=== PATIENT | female | born 1955 | race Caucasian/White ===

== ENCOUNTER → 2016-09-25 | Outpatient (CLI) | payer BC ==
[~2016-09-25] MED LIST: ALBUAER2 INH; BND25 PO; IBUP600T44 PO
== END | disposition home or self-care (01) ==
LOC: C.PAPS 14:34
PROVIDERS: ATTEND Obstetrics & Gynecology
DX: Z01.419 Encounter for gynecological examination (general) (routine) without abnormal findings (principal)

== ENCOUNTER → 2017-08-16 | Outpatient (CLI) | payer OTHER ==
[~2017-08-16] MED LIST changes: -BND25 PO; +DIPH25CA5 PO; +VNTHFA/IN INH
--- NOTE | 2017-08-20 13:37 | MAMMOGRAPHY REPORT ---
BILATERAL DIGITAL SCREENING MAMMOGRAM TOMOSYNTHESIS WITH CAD: 08/16/2017 CLINICAL HISTORY: Routine screening. Patient has no complaints. TECHNIQUE: Breast tomosynthesis in addition to standard 2D mammography was performed. Current study was also evaluated with a Computer Aided Detection (CAD) system. COMPARISON: Comparison is made to exams dated: 08/09/2016 mammogram, 08/08/2015 mammogram, 4 mammogram, 08/04/2013 mammogram, 07/30/2012 mammogram, and 07/30/2011 mammogram - [facility]. BREAST COMPOSITION: There are scattered areas of fibroglandular density in both breasts. FINDINGS: No suspicious masses, calcifications, or areas of architectural distortion are noted in ei ther breast. There has been no significant interval change compared to prior exams. IMPRESSION: ACR BI-RADS CATEGORY 1: NEGATIVE There is no mammographic evidence of malignancy. A 1 year screening mammogram is recommended. The pa tient will receive written notification of the results. Approximately 10% of breast cancers are not detected with mammography. A negative mammographic report should not delay biopsy if a clinically suggestive mass is present. Peace Lu M.D. ah/:08/16/2017 15:27:06 Quenching Car Operator: Teodora ROSS(Lam)(M), [facility] letter sent: Normal 1/2 BI-RADS Code: ACR BI-RADS Category 1: Negative
== END | disposition home or self-care (01) ==
LOC: C.MAMM 14:58
PROVIDERS: ATTEND Obstetrics & Gynecology
DX: Z12.31 Encounter for screening mammogram for malignant neoplasm of breast (principal)

== ENCOUNTER 2017-10-14 20:25 | Emergency (ER) | payer OTHER ==
[~2017-10-14] VITALS: Ht 172.7 cm; Wt 78.6 kg
[~2017-10-14 20:25] MED LIST changes: -VNTHFA/IN INH
[2017-10-14 20:39] VITALS: BP 153/89; PULSE 69; TEMP 36.6; O2SAT 97; Ht 172.7 cm; Wt 78.6 kg
[2017-10-14] MEDS ORDERED: VNTHFA/IN INH (21:02)
[2017-10-14] MEDS ORDERED: ACETAMINOPHEN 500 MG TAB PO STA (21:15)
[2017-10-14] MEDS ORDERED: IBUPROFEN 600 MG TAB PO STA (21:15)
[2017-10-14] MEDS ORDERED: ONDANSETRON 4MG OD TAB PO STA (21:15)
--- NOTE | 2017-10-14 22:01 | DIAGNOSTIC IMAGING REPORT ---
R KNEE 3 VIEWS, L KNEE 3 VIEWS CLINICAL HISTORY: Fall. Bilateral knee pain. COMPARISON STUDY: None. FINDINGS: No fracture or dislocation. Right Prepatellar soft tissue swelling. No knee effusions. No radiopaque foreign bodies. IMPRESSION: 1. No fracture or dislocation within the right or left knee. 2. Right prepatellar soft tissue swelling. Electronically signed by: Gary Charles M.D. 10/14/2017 9:59 PM Dictated Date/Time: 10/14/2017 9:57 PM
--- NOTE | 2017-10-14 22:05 | DIAGNOSTIC IMAGING REPORT ---
LEFT WRIST 4 VIEWS HISTORY: Fall. Left wrist injury COMPARISON: None. FINDINGS: There is no fracture or dislocation. Soft tissues are unremarkable. No radiopaque foreign bodies. IMPRESSION: No fractures. Electronically signed by: Gary Charles M.D. 10/14/2017 10:03 PM Dictated Date/Time: 10/14/2017 9:59 PM
--- NOTE | 2017-10-15 18:14 | EMERGENCY ROOM VISIT NOTE ---
History First contact with patient: 21:08 Chief Complaint: FALL Stated Complaint: BOTH KNEES AND WRISTS HURT- SPRAINED FELL History of Present Illness The patient is a 62 year old female who presents to the Emergency Room with complaints of mechanical fall that occurred at home about 30 minutes ago. The patient states that she was walking out her door, when she slipped off the side of her stoop, landed onto her bilateral knees and left wrist. She did not strike her head or lose consciousness. She collected herself and was able to stand and ambulate after the injury. She has not taken anything over-the- counter for her pain. The patient does not have significant laceration or bleeding. She does not take blood thinners and considers herself usually healthy. She rates her current discomfort an 8/10. Review of Systems More than 10 systems were reviewed and otherwise negative with the exception of history of present illness. Past Medical/Surgical History No pertinent chronic medical disease Family History No pertinent family history Social History Smoking Status: Never Smoker Alcohol Use: none Drug Use: none Marital Status: Housing Status: lives with family Occupation Status: employed Current/Historical Medications Scheduled PRN Albuterol Hfa (Ventolin Hfa), 2 PUFFS INH Q6H PRN for SOB/Wheezing Physical Exam Vital Signs Date Time Temp Pulse Resp B/P (MAP) Pulse Ox O2 Delivery O2 Flow Rate FiO2 10/14/17 20:39 36.6 69 20 153/89 97 Room Air Physical Exam VITALS: Vitals are noted on the nurse's note and reviewed by myself. Vital signs stable. GENERAL: Well-developed, well-nourished, white female, who is in no acute distress and resting comfortably. Patient is cooperative with the examination. HEAD: Normocephalic atraumatic. NECK: Supple without nuchal rigidity. No lymphadenopathy. No thyromegaly. Cervical spine is nontender. HEART: Regular rate and rhythm without murmurs gallops or rubs. LUNGS: Clear to auscultation bilaterally without wheezes, rales or rhonchi. No retractions or accessory muscle use. MUSCULOSKELETAL: No gross deformity appreciated throughout the extremities. There is obvious edema and ecchymosis to the bilateral anterior knees. Negative anterior/posterior drawers. No laxity with varus and valgus maneuvers. Neurovascular status is intact distal lower extremities. The left wrist is tender across the distal radius without snuffbox tenderness. Chronograph Operator strength is 2/5. NEURO: Patient was alert and oriented to person place and time. CN II through XII grossly intact. Medical Decision & Procedures ER Provider Diagnostic Interpretation: LEFT WRIST 4 VIEWS HISTORY: Fall. Left wrist injury COMPARISON: None. FINDINGS: There is no fracture or dislocation. Soft tissues are unremarkable. No radiopaque foreign bodies. IMPRESSION: No fractures. R KNEE 3 VIEWS, L KNEE 3 VIEWS CLINICAL HISTORY: Fall. Bilateral knee pain. COMPARISON STUDY: None. FINDINGS: No fracture or dislocation. Right Prepatellar soft tissue swelling. No knee effusions. No radiopaque foreign bodies. IMPRESSION: 1. No fracture or dislocation within the right or left knee. 2. Right prepatellar soft tissue swelling. Medications Administered Medications (Trade) Dose Ordered Sig/Hayden Route Start Time Stop Time Status Last Admin Dose Admin Ibuprofen (Motrin Tab) 600 mg NOW STAT PO 10/14/17 21:15 10/14/17 21:17 DC 10/14/17 21:28 600 MG Acetaminophen (Tylenol Tab) 1,000 mg NOW STAT PO 10/14/17 21:15 10/14/17 21:17 DC 10/14/17 21:28 1,000 MG Ondansetron HCl (Zofran Odt) 4 mg NOW STAT PO 10/14/17 21:15 10/14/17 21:17 DC 10/14/17 21:28 4 MG ED Course Physical exam and history were performed. Nursing notes, EMR, and Medication List were personally reviewed. Patient appears to have fallen off her front stoop this evening and suffered injury to her bilateral knees and left wrist. X-rays were obtained and reviewed by myself and radiology showing no acute fractures or dislocations. The patient was given ibuprofen and Tylenol here in the department. I did offer crutches and a walker, however the patient feels comfortable not using these. I will place her in a wrist lacer splint and have her follow with orthopedics. I did offer her stronger pain medication, but she also declined this. Overall the patient appears well for discharge home and was given further instruction below. She voiced understanding and rated her discomfort a 2/10 at the time of departure. The chart was completed utilizing [employer] Voice Recognition Software. Grammatical errors, random word insertions, pronoun errors, and incomplete sentences are an occasional consequence of this system due to software limitations, ambient noise, and hardware issues. Any formal questions or concerns about the content, text, or information contained within the body of this dictation should be directly addressed to the provider for clarification. . Medical Decision Differential diagnosis includes, but is not limited to: Sprain, strain, fracture , dislocation, subluxation, contusion, and others Impression Primary Impression: Fall Additional Impressions: Knee injury Injury of left wrist Departure Information Dispostion Home / Self-Care Condition GOOD Referrals Juan Arellano MD Forms HOME CARE DOCUMENTATION FORM, IMPORTANT VISIT INFORMATION Patient Instructions My [facility], ED RICE Additional Instructions You were seen and evaluated today on an emergency basis only. This is not a substitute for, or an effort to provide, complete comprehensive medical care. It is not possible to recognize and treat all injuries or illnesses in a single emergency department visit. For this reason it is recommended that you followup with [facility] , Dr. Arellano's office, for ongoing care and evaluation. For baseline pain relief you may alternate ibuprofen and acetaminophen every 4 hours for pain control. Take 600 mg ibuprofen (Advil) and then 4 hours later take 1000 mg acetaminophen (Tylenol). Do not take more than 3000 mg acetaminophen in a single day. Take every precaution to prevent falling. Try using a cane to help with stability. You are welcome to return to the emergency department anytime with new, worsening, or concerning symptoms. Problem Qualifiers Primary Impression: Fall Encounter type: initial encounter Qualified Codes: W19.XXXA - Unspecified fall, initial encounter
== END 2017-10-14 22:57 | disposition home or self-care (01) ==
LOC: C.EDB 20:26 → C.EDD 22:57
DX: S89.90XA Unspecified injury of unspecified lower leg, initial encounter (principal); S69.92XA Unspecified injury of left wrist, hand and finger(s), initial encounter; W01.0XXA Fall on same level from slipping, tripping and stumbling without subsequent striking against object, initial encounter; Y92.018 Other place in single-family (private) house as the place of occurrence of the external cause

== ENCOUNTER → 2018-03-24 | Outpatient (CLI) | payer OTHER ==
[~2018-03-24] MED LIST changes: -ALBUAER2 INH; -DIPH25CA5 PO; -IBUP600T44 PO; +VNTHFA/IN INH
== END | disposition home or self-care (01) ==
LOC: C.PAPS 18:44
PROVIDERS: ATTEND Obstetrics & Gynecology
DX: Z12.4 Encounter for screening for malignant neoplasm of cervix (principal)

== ENCOUNTER 2025-02-15 11:37 | Inpatient (IN) ==
[2025-02-15 12:48] LABS: Hematocrit (blood only) 47.9 % (37.0-47.0); Hemoglobin 15.7 g/dl (12.0-16.0); Immature Granulocytes # (auto) 0.11 K/uL (0.01-0.20); Immature Granulocytes % (auto) 0.9 %; Mean Corpuscular Hemoglobin 28.8 pg (25.0-34.0); Mean Corpuscular Volume 87.9 fL (80.0-100.0); Platelet Count 297 K/uL (130-400); RDW Standard Deviation 44.4 fL (36.4-46.3); Red Blood Count 5.45 M/uL (4.20-5.40); White Blood Count 11.66 K/ul (4.8-10.8)
--- NOTE | 2025-02-15 12:54 | XRay Report ---
XR chest 1V portable CLINICAL HISTORY: Chest pain, nonspecific COMPARISON STUDY: None FINDINGS: There is mild cardiomegaly without pulmonary vascular congestion. No consolidation or pleur al effusion. No pneumothorax. IMPRESSION: No acute findings. ACT 112: Negative or not required by law. Electronically signed by: Garth Phillips M.D. 02/15/2025 12:53 PM
[2025-02-15] MEDS: METOPROLOL TARTRATE 1 MG/ML VIAL IV STA (13:04)
[2025-02-15 13:10] LABS: Alanine Aminotransferase 23.0 U/L (7-52); Albumin Globulin Ratio 1.6 (0.9-2); Alkaline Phosphatase 49.0 U/L (34-104); Anion Gap 8.0 (3-11); Bilirubin,Total 0.8 mg/dl (0.2-1.0); Blood Urea Nitrogen 18.0 mg/dl (6-23); Calcium 9.2 mg/dl (8.6-10.3); Carbon Dioxide 28.0 mmol/L (21-32); Chloride 105.0 mmol/L (98-107); Creatinine Clr Calc Pharmacy 63.7 ml/min; Globulin 2.5 gm/dl (2.5-4.0); Glucose 89.0 mg/dl (70-99(Fasting)); Lipase 13.0 U/L (11-82); Magnesium 1.9 mg/dl (1.7-2.4); Potassium 3.9 mmol/L (3.5-5.1); Sodium 141.0 mmol/L (136-145); Total Protein 6.5 gm/dl (6.0-8.3)
--- NOTE | 2025-02-15 13:22 | History & Physical Report ---
Date of Service February 15, 2025 Assessment & Plan (1) Atrial fibrillation with RVR: (2) Leukocytosis: Plan Patient is a 70-year-old female with past medical history significant for HLD, GERD, asthma, age-related osteoporosis and other problems listed below who presented to the ED with complaints including chest pain plus hypertension and was found to be in new-onset afib w/ RVR. #New-onset Afib w/ RVR CXR: mild cardiomegaly but otherwise unremarkable [id number] score = 2 S/p 5mg IV Lopressor in ED --> remains in afib w/ RVR on tele w/ HR ranging b/n 90s-120s, BP stable PO Lopressor 12.5mg Q6H for now Check TTE Trend trop; trop x 1 neg so far Close tele monitoring IV heparin for now Cards consult #Leukocytosis Likely reactive 2/2 pain Check UA, procal Follow CBC trend #Age-related osteoporosis Hold Fosamax for now; re: pt c/o reflux sx, midsternal 'burning sensation' --> PRN Maalox added on Continue vit D supplementation #GERD Continue PPI #HLD Continue statin DVT Prophylaxis: IV heparin as per above PCP: Teodora Hooker DO Disposition: Admit to med/tele Patient seen in collaboration with Dr. Monahan. Please see addendum. I spent a total of 50 minutes coordinating, documenting, and providing care for this patient excluding time spent in the performance of separately billed services or time spent by another provider/QHP. This included personally reviewing all current laboratories and imaging studies, medical reconciliation, outpatient chart review and discussion with specialists. This chart was completed in part utilizing Speech Voice Recognition Software. Grammatical errors, random word insertions, pronoun errors, and incomplete sentences are an occasional consequence of this system due to software limitations, ambient noise, and hardware issues. Any formal questions or concerns about the content, text, or information contained within the body of this dictation should be directly addressed to the provider for clarification. History of Present Illness Chief Complaint: Chest pain, elevated BP Primary Care Provider: Teoodra Hooker DO Patient is a 70-year-old female with past medical history significant for HLD, GERD, asthma, age-related osteoporosis and other problems listed below who presented to the ED with complaints of chest pain and hypertension. History obtained from the patient, discussion with the ED provider and associated chart review. Patient reports onset of crushing substernal chest pain and palpitations last evening around 8PM after riding her exercise bike. Upon resting, her HR was elevated in the 110s-120s and the substernal chest pain did not reside. She describes feeling diaphoretic, nauseated and somewhat short of breath as well when the substernal chest pain arose. Eventually these symptoms slowly improved and she was able to fall asleep; however, she mentions experiencing bouts of chest pressure throughout the night which made it difficult for her to lie flat in bed. Upon waking this morning, her symptoms slowly returned including substernal chest pain, chest pressure and nausea. She also describes feeling a "burning sensation" in her mid upper chest which she thought was related to her underlying GERD; however, she took 2 TUMS this morning without any improvement in her symptoms which subsequently prompted her to come to the ED for evaluation. Upon arrival to the ED, patient was found to be in afib with RVR on telemetry with HR in the 130s. No history of afib per patient. Does have a brother with afib. No prior blood th inner use. No history of HTN. Endorses strong family history of cardiac disease including her mother whom in her 40s due to an acute [place]. No smoking history. Rare alcohol use. No recreational drug use. Stress TTE, 07/2020: negative for inducible ischemia, LVEF 55 to 59%, grade 1 DD and mild MR. Allergies Allergy/AdvReac Type Severity Reaction Status Date / Time Penicillins Allergy Mild . Verified 05/07/24 13:28 Home Medications Medication Instructions Recorded Confirmed Type albuterol sulfate 90 mcg/actuation 2 puff inhalation Q4H PRN SOB or 12/21/20 02/15/25 History aerosol inhaler (ProAir HFA) Wheezing alendronate 10 mg PO QAM 07/18/23 02/15/25 History rosuvastatin [Crestor] 10 mg PO QAM 07/18/23 02/15/25 History omeprazole 20 mg capsule,delayed 20 mg PO QAM 02/12/24 02/15/25 History release cholecalciferol (vitamin D3) 50 50 mcg PO QAM 02/15/25 02/15/25 History mcg (2,000 unit) tablet (Vitamin D3) loratadine 10 mg tablet 10 mg PO QAM 02/15/25 02/15/25 History turmeric 400 mg capsule 400 mg PO QAM 02/15/25 02/15/25 History Past Med/Surg History Problem List Leukocytosis Atrial fibrillation with RVR PMB (postmenopausal bleeding) Encounter for gynecological examination Postmenopausal atrophic vaginitis Hypercholesterolemia Osteoporosis Asthma Postmenopausal Coccygeal contusion (Acute) Medical History Atypical glandular cells of undetermined significance (KARLY) on cervical Pap smear 2015 w/u negative Healthy adult Surgical History H/O eye surgery History of lumpectomy History of tooth extraction Family History Sister Breast cancer Mother Lung cancer Uterine cancer Aunt Breast cancer Daughter Colon tumor Other Hypertension Denies family history of Ovarian cancer Social History Smoking Status: Never smoker Do You Dip or Chew Tobacco: No; Preferred Language: Hungarian Feels Safe at Home: Yes Review of Systems Review of Systems: At least ten systems reviewed and negative, except as noted in the HPI. Physical Exam Physical Exam: General: WD/WN, NAD, sitting up in bed, pleasant, conversing appropriately, A+Ox3, at bedside HEENT: Normocephalic, atraumatic, external ear and nose normal, oropharynx normal Respiratory: Normal respiratory effort, lungs clear to auscultation bilaterally, no accessory muscle use Cardiovascular: Tachycardic rate, irregularly irregular rhythm, normal peripheral pulses, no BLE edema Abdomen/GI: Normal bowel sounds, soft, nontender to palpation in all quadrants Extremities/MSKl: No cyanosis or clubbing, extremities motor strength intact, moves all extremities Neurologic: No overt focal deficits, CN's II-XI not formally tested but appear grossly intact bilaterally Results & Data Results & Data Vital Signs (Past 12 Hours) Vital Signs Temp Pulse Pulse Resp BP BP Pulse Ox 02/15/25 13:13 111 H 02/15/25 13:04 132 H 124/86 02/15/25 12:01 136 H 18 137/111 H 96 02/15/25 11:40 36.6 C 119 H 20 152/101 H 97 O2 Del Method 02/15/25 13:13 02/15/25 13:04 02/15/25 12:01 Room Air 02/15/25 11:40 Room Air Laboratory Results Short CBC 02/15/25 Range/Units 11:57 WBC 11.66 H (4.8-10.8) K/ul Hgb 15.7 (12.0-16.0) g/dl Hct 47.9 H (37.0-47.0) % Plt Count 297 (130-400) K/uL BMP 02/15/25 11:57 Sodium 141 Potassium 3.9 Chloride 105 Carbon Dioxide 28 BUN 18 Creatinine 0.87 Glucose 89 Calcium 9.2 Liver Function 02/15/25 Range/Units 11:57 Total Bilirubin 0.8 (0.2-1.0) mg/dl AST 37 (13-39) U/L ALT 23 (7-52) U/L Alkaline Phosphatase 49 (34-104) U/L Albumin 4.0 (3.4-5.0) gm/dl Diagnostic Findings Chest X-Ray 02/15/25 12:27 XR chest 1V portable CLINICAL HISTORY: Chest pain, nonspecific COMPARISON STUDY: None FINDINGS: There is mild cardiomegaly without pulmonary vascular congestion. No consolidation or pleural effusion. No pneumothorax. IMPRESSION: No acute findings. ACT 112: Negative or not required by law. Electronically signed by: Garth Phillips M.D. 02/15/2025 12:53 PM Medications Administered Discontinued Medications Metoprolol Tartrate (Metoprolol Tartrate 1 Mg/Ml Vial) 5 mg IV NOW STA Stop: 02/15/25 12:36 Last Admin: 02/15/25 13:04 Dose: 5 mg Documented By: CC Code Status & VTE Plan Code Status FULL CODE Supervising Physician Co-Signing Physician Notes 70-year-old lady with PMH of HLD, GERD, asthma, age-related osteoporosis on Fosamax presents to the ED with complaint of chest discomfort and was noted to be in A-fib with RVR. Patient did her usual bike exercise last evening, she noted that she started having chest pressure and increased heart rate despite rest afterwards, the chest pain continued until 3:30 AM and she went to sleep. She also noted palpitation last evening. When she woke up she noticed some shortness of breath. She apparently took her Fosamax in the morning and she noted some burning pain up in the throat. She denies fever/sore throat/cough. Reports some nausea. Denies vomiting. Imagings reviewed. Mild leukocytosis likely due to acute stress. CMP and troponin Normal. Procalcitonin and lipase normal. CXR with no acute finding. A-fib RVR: New, get TSH, echo, telemetry monitoring, PO Metoprolol tartrate every 6 hours as needed IV metoprolol tartrate. Heparin drip. Cardiology consult. Possible Fosamax induced esophagitis: Had burning sensation after taking Fosamax in the morning. Patient advised to take at least 8 ounces of water with Fosamax, stay upright for about half an hour after the dose. Continue to monitor. On exam: On room air, heart rate in 120s irregularly irregular, no BLE edema. Rest of the examination as above. Total time spent independently: 23 minutes. I have seen and examined the patient and have discussed the case with the provider above. I agree with the assessment and plan as stated. (2) Leukocytosis Leukocytosis type: unspecified Qualified Code(s): D72.829 - Elevated white blood cell count, unspecified
[2025-02-15 13:23] LABS: INR 0.9 (0.9-1.1); Partial Thromboplastin Time 26 Seconds (21-31); Prothrombin Time 10.3 Seconds (9.0-12.0)
[2025-02-15] MEDS ORDERED: ALBUTEROL HFA 8 GM INHALER INH PRN (14:15)
[2025-02-15] MEDS ORDERED: Heparin IV Adult Wt-Based Standard *NO* INITIAL Bolus Protocol IV STA (14:19)
[2025-02-15] MEDS ORDERED: METOPROLOL TARTRATE 1 MG/ML VIAL IV PRN (14:41)
--- NOTE | 2025-02-15 15:28 | Emergency Department Note ---
ED Provider Note CHIEF COMPLAINT: Increased heart rate, chest pressure HISTORY OF PRESENT ILLNESS: This 70-year-old female patient past medical history of asthma and hypercholesterolemia presents to the emergency department with complaints of chest heaviness and rapid heartbeat. Patient states it all started last evening. Heart rate has been as high as 130 bpm. She denies any recent illnesses. She denies any cardiac history. States her mother in her 40s of a heart attack. REVIEW OF SYSTEMS: A review of systems was performed with positives and pertinent negatives listed in the history of present illness. 10 systems were reviewed and are otherwise negative. ALLERGIES: see below MEDICATIONS: see below PMH: see below SOCIAL HISTORY: see below DDx: Atrial fibrillation, acute coronary syndrome, GERD, dehydration, electrolyte abnormality among others. PHYSICAL EXAM: Vital signs reviewed. General: Well-appearing 70-year-old female, in no significant distress. HEENT: No scleral icterus, PERRLA, neck supple. Atraumatic. Cardiovascular: Irregular and tachycardic. Pulmonary: Clear to auscultation bilaterally, normal work of breathing. Abdomen: Soft, nontender, nondistended, positive bowel sounds. Musculoskeletal: Atraumatic, no peripheral edema. Neurologic: Patient awake alert and oriented x 3, speech is clear Skin: Warm, dry, no rash EMERGENCY DEPARTMENT COURSE/MDM: [] MONITORING: An order for cardiac monitoring was placed and the patient is noted to be in an atrial fibrillation with rapid ventricular response at 136 beats per minute. RADIOLOGY: Chest x-ray to my interpretation reveals no evidence of focal lung consolidation or failure. EKG: To my interpretation reveals atrial fibrillation with rapid ventricular response at 132 bpm. QTc of 432. Normal ST segments. No evidence of acute ischemic change. DISPOSITION: Admission Past Med/Surg History Problem List Leukocytosis Atrial fibrillation with RVR PMB (postmenopausal bleeding) Encounter for gynecological examination Postmenopausal atrophic vaginitis Hypercholesterolemia Osteoporosis Asthma Postmenopausal Coccygeal contusion (Acute) Medical History Atypical glandular cells of undetermined significance (KARLY) on cervical Pap smear 2015 w/u negative Healthy adult Surgical History H/O eye surgery History of lumpectomy History of tooth extraction Family History Sister Breast cancer Mother Lung cancer Uterine cancer Aunt Breast cancer Daughter Colon tumor Other Hypertension Denies family history of Ovarian cancer Social History Smoking Status: Never smoker Do You Dip or Chew Tobacco: No; Preferred Language: Ugandan Feels Safe at Home: Yes Allergies Allergies Allergy/AdvReac Type Severity Reaction Status Date / Time Penicillins Allergy Mild . Verified 05/07/24 13:28 Home Meds Home Medications Medication Instructions Recorded Confirmed albuterol sulfate 90 mcg/actuation 2 puff inhalation Q4H PRN SOB or 12/21/20 02/15/25 aerosol inhaler (ProAir HFA) Wheezing alendronate 10 mg PO QAM 07/18/23 02/15/25 rosuvastatin [Crestor] 10 mg PO QAM 07/18/23 02/15/25 omeprazole 20 mg capsule,delayed 20 mg PO QAM 02/12/24 02/15/25 release cholecalciferol (vitamin D3) 50 50 mcg PO QAM 02/15/25 02/15/25 mcg (2,000 unit) tablet (Vitamin D3) loratadine 10 mg tablet 10 mg PO QAM 02/15/25 02/15/25 turmeric 400 mg capsule 400 mg PO QAM 02/15/25 02/15/25 Results & Data (ED) Vital Signs Vital Signs - 24 hr 02/15/25 11:40 02/15/25 12:01 02/15/25 13:04 Temperature 36.6 C Temperature Source Temporal Artery Scan Pulse Rate 119 H 132 H Pulse Rate [Apical] 136 H Respiratory Rate 20 18 Respiratory Effort / Characteristics Non-Labored Spontaneous Non-Labored Spontaneous Respiratory Depth Normal Normal Blood Pressure 152/101 H 124/86 Blood Pressure [Left Arm] 137/111 H Blood Pressure Mean 118 Blood Pressure Mean [Left Arm] 119 Blood Pressure Position [Left Arm] Sitting Pulse Oximetry 97 96 Oxygen Delivery Method Room Air Room Air Sepsis Recent Fever Within 48 Hours No Sepsis New/Unexplained Change in Mental Status No Sepsis Action Taken by Nursing No Action Required 02/15/25 13:13 02/15/25 13:20 Temperature Temperature Source Pulse Rate 111 H Pulse Rate [Apical] 100 H Respiratory Rate 18 Respiratory Effort / Characteristics Non-Labored Spontaneous Respiratory Depth Normal Blood Pressure Blood Pressure [Left Arm] 130/84 Blood Pressure Mean Blood Pressure Mean [Left Arm] 99 Blood Pressure Position [Left Arm] Lying Pulse Oximetry 96 Oxygen Delivery Method Room Air Sepsis Recent Fever Within 48 Hours Sepsis New/Unexplained Change in Mental Status Sepsis Action Taken by Retirement Medications Current Medication List: was personally reviewed by me Laboratory Data Attestation: I reviewed the patient's lab results. 02/15/25 11:57 02/15/25 11:57 Lab Results 02/15/25 Range/Units 11:57 WBC 11.66 H (4.8-10.8) K/ul RBC 5.45 H (4.20-5.40) M/uL Hgb 15.7 (12.0-16.0) g/dl Hct 47.9 H (37.0-47.0) % MCV 87.9 (80.0-100.0) fL MCH 28.8 (25.0-34.0) pg MCHC 32.8 (32.0-36.0) g/dL RDW Std Deviation 44.4 (36.4-46.3) fL RDW Coeff of Marquez 14.0 (11.5-14.5) % Plt Count 297 (130-400) K/uL MPV 10.0 (9.4-12.4) fL Immature Gran % (Auto) 0.9 % Neut % (Auto) 64.0 % Lymph % (Auto) 26.0 % [place] % (Auto) 8.0 % Eos % (Auto) 0.6 % Baso % (Auto) 0.5 % Neut # (Auto) 7.46 H (1.40-6.50) K/uL Lymph # (Auto) 3.03 (1.20-3.40) K/uL [place] # (Auto) 0.93 H (0.11-0.59) K/uL Eos # (Auto) 0.07 (0.00-0.50) K/uL Baso # (Auto) 0.06 (0.00-0.20) K/uL Immature Gran # (Auto) 0.11 (0.01-0.20) K/uL PT 10.3 (9.0-12.0) Seconds INR 0.9 (0.9-1.1) APTT 26 (21-31) Seconds PTT Ratio 1.0 Sodium 141 (136-145) mmol/L Potassium 3.9 (3.5-5.1) mmol/L Chloride 105 (98-107) mmol/L Carbon Dioxide 28 (21-32) mmol/L Anion Gap 8 (3-11) BUN 18 (6-23) mg/dl Creatinine 0.87 (0.6-1.2) mg/dl Est Cr Clr Drug Dosing 63.7 ml/min eGFR 71.19 BUN/Creatinine Ratio 20.7 H (10-20) Glucose 89 (70-99(Fasting)) mg/dl Calcium 9.2 (8.6-10.3) mg/dl Magnesium 1.9 (1.7-2.4) mg/dl Total Bilirubin 0.8 (0.2-1.0) mg/dl AST 37 (13-39) U/L ALT 23 (7-52) U/L Alkaline Phosphatase 49 (34-104) U/L Troponin I High Sens 11.6 (0-14) pg/ml Total Protein 6.5 (6.0-8.3) gm/dl Albumin 4.0 (3.4-5.0) gm/dl Globulin 2.5 (2.5-4.0) gm/dl Albumin/Globulin Ratio 1.6 (0.9-2) Lipase 13 (11-82) U/L Administered Medications Discontinued Medications Metoprolol Tartrate (Metoprolol Tartrate 1 Mg/Ml Vial) 5 mg IV NOW STA Stop: 02/15/25 12:36 Last Admin: 02/15/25 13:04 Dose: 5 mg Documented By: CC Imaging Data Radiologist's Impression: Chest X-Ray 02/15/25 12:27 XR chest 1V portable CLINICAL HISTORY: Chest pain, nonspecific COMPARISON STUDY: None FINDINGS: There is mild cardiomegaly without pulmonary vascular congestion. No consolidation or pleural effusion. No pneumothorax. IMPRESSION: No acute findings. ACT 112: Negative or not required by law. Electronically signed by: Garth Phillips M.D. 02/15/2025 12:53 PM Discharge Plan Visit Data Chief Complaint: Cardiac Assessment Stated Complaint: CHEST HURT, RACING PULSE, BLOOD PRESSURE ED Provider: Hung,April B Patient Disposition: Admitted As Inpatient Discharge Instructions Interventions: ED Discharge Assessment Last Done: 02/15/25 14:49 Forms Stand Alone Forms: My embraase Prescriptions Prescriptions: No Action albuterol sulfate [ProAir HFA] 90 mcg/actuation HFA aerosol inhaler 2 puff inhalation Q4H PRN (Reason: SOB or Wheezing) omeprazole 20 mg capsule,delayed release(DR/EC) 20 mg PO QAM alendronate 10 mg PO QAM Rx Instructions: TAKE 1 TABLET BY MOUTH IN THE MORNING WITH 8 OZ OF WATER AT LEAST 30 MINUTES BEFORE FIRST MEAL OF THE DAY. DO NOT LIE DOWN FOR 30 MINUTES AFTER TAKING TABLET. rosuvastatin [Crestor] 10 mg PO QAM loratadine 10 mg Tablet 10 mg PO QAM cholecalciferol (vitamin D3) [Vitamin D3] 50 mcg (2,000 unit) Tablet 50 mcg PO QAM turmeric 400 mg Capsule 400 mg PO QAM Referrals Referrals: Teodora Hooker DO [Primary Care Provider] -
[2025-02-15] MEDS ORDERED: POLYETHYLENE (MIRALAX) 17 GM PACK PO PRN (16:11)
[2025-02-15] MEDS ORDERED: ACETAMINOPHEN 325 MG TAB PO PRN (16:11)
[2025-02-15] MEDS ORDERED: ONDANSETRON INJ 2 MG/ML 2 ML VIAL IV PRN (16:11)
[2025-02-15] MEDS ORDERED: MAGNESIUM HYDROXIDE SUSP 30 ML UDC PO PRN (16:11)
[2025-02-15] MEDS ORDERED: ALUMINUM/MAGNESIUM SUSP 30 ML UDC PO PRN (16:11)
[2025-02-15] MEDS: HEPARIN 25000 UNIT/500 ML D5W 25,000 UNITS/500 ML BAG IV SCH (16:28)
--- NOTE | 2025-02-15 16:34 | Cardiology Consultation ---
Date of Consultation February 15, 2025 Assessment & Plan (1) Atrial fibrillation with RVR: (2) Precordial chest pain: (3) Hypercholesterolemia: Plan 70-year-old female presented acutely with symptoms of chest pressure and pain and heart pounding beginning evening prior. Usually very active but limited recently by knee injury. Initial cardiac enzymes negative for injury or infarct. EKG and telemetry on presentation atrial fibrillation with rapid response. Heart rate slowed s lightly with single dose of IV metoprolol. Impression: 1. Atrial fibrillation with rapid ventricular response: First event per patient will begin metoprolol tartrate 25 mg p.o. every 6 hours. [id number] score of 2. Begin IV heparin for anticoagulation. Reassess heart rates as clinical course progresses regarding potential cardioversion given recent and acute onset 2. Acute chest pain. Recent car travel and right knee injury. D-dimer ordered if positive would CT chest for PE. EKG in a.m. N.p.o. after midnight History of Present Illness Reason for Consultation: Atrial fibrillation with rapid ventricular response, Chest pain [facility]ing [facility] Attending Physician: Krys Monahna MD History of Present Illness Patient is a 70-year-old female without prior history of cardiac disease who presents now noting last evening having developed sensation of substernal chest pain and rapid heart pounding. Patient felt breathless and tight in the chest throughout the entire evening and night. No jaw pain but felt uncomfortable lying flat. Symptoms eased but did not go away completely and lasted throughout the night resulting in patient prompting primary care physician office regarding symptoms. Heart rates between 100 115 on home blood pressure monitor with elevated blood pressures. Patient was referred to emergency room patient found to be in atrial fibrillation with elevated ventricular response rate. Heart rate slowed with 5 mg IV metoprolol but still elevated. Chest pain has resolved. No prior history of myocardial infarction, angina, congestive heart failure. No history of rheumatic fever or scarlet fever or heart murmur. No recent fevers chills or unexplained infections. No bleeding issues dark black stools blood in the stools or blood in the urine. Appetite stable. No acute weight loss or gain Patient is aware of difficulty sleeping at night but rises frequently. Family history notable for coronary disease, atrial fibrillation. Father at age 48. Brother with atrial fibrillation, son with possible myocardial infarction Has had knee injury in March of this year with persistent pain and discomfort limiting activities. Recent Extended car travel Allergies Allergy/AdvReac Type Severity Reaction Status Date / Time Penicillins Allergy Mild . Verified 05/07/24 13:28 Home Medications Medication Instructions Recorded Confirmed Type albuterol sulfate 90 mcg/actuation 2 puff inhalation Q4H PRN SOB or 12/21/20 02/15/25 History aerosol inhaler (ProAir HFA) Wheezing alendronate 10 mg PO QAM 07/18/23 02/15/25 History rosuvastatin [Crestor] 10 mg PO QAM 07/18/23 02/15/25 History omeprazole 20 mg capsule,delayed 20 mg PO QAM 02/12/24 02/15/25 History release cholecalciferol (vitamin D3) 50 50 mcg PO QAM 02/15/25 02/15/25 History mcg (2,000 unit) tablet (Vitamin D3) loratadine 10 mg tablet 10 mg PO QAM 02/15/25 02/15/25 History turmeric 400 mg capsule 400 mg PO QAM 02/15/25 02/15/25 History Patient History Medical History Atypical glandular cells of undetermined significance (KARLY) on cervical Pap smear 2015 w/u negative Healthy adult Surgical History H/O eye surgery History of lumpectomy History of tooth extraction Family History Sister Breast cancer Mother Lung cancer Uterine cancer Aunt Breast cancer Daughter Colon tumor Other Hypertension Denies family history of Ovarian cancer Social History Smoking Status: Never smoker Do You Dip or Chew Tobacco: No; Preferred Language: [place]ian Feels Safe at Home: Yes Review of Systems Review of Systems: All systems reviewed & are unremarkable except as noted in HPI & below Physical Exam Constitutional: WD/WN, vitals as above no acute distress Eyes: PERRL, conjunctivae normal, anicteric sclerae ENMT: external ear and nose normal, oropharynx normal Neck: trachea midline, no thyromegaly Respiratory: normal respiratory effort, lungs clear to auscultation Cardiovascular: Rate/Rhythm: + tachycardic and + irregularly irregular Results & Data Vital Signs (Past 12 Hours) Vital Signs Temp Pulse Pulse Pulse Resp BP BP 02/15/25 15:54 36.7 C 103 H 18 136/83 02/15/25 13:20 100 H 18 130/84 02/15/25 13:13 111 H 02/15/25 13:04 132 H 124/86 02/15/25 12:01 136 H 18 137/111 H 02/15/25 11:40 36.6 C 119 H 20 152/101 H Pulse Ox O2 Del Method 02/15/25 15:54 97 Room Air 02/15/25 13:20 96 Room Air 02/15/25 13:13 02/15/25 13:04 02/15/25 12:01 96 Room Air 02/15/25 11:40 97 Room Air Laboratory Results Laboratory Results - last 24 hr 02/15/25 02/15/25 11:57 15:21 WBC 11.66 H RBC 5.45 H Hgb 15.7 Hct 47.9 H MCV 87.9 MCH 28.8 MCHC 32.8 RDW Std Deviation 44.4 RDW Coeff of Marquez 14.0 Plt Count 297 MPV 10.0 Immature Gran % (Auto) 0.9 Neut % (Auto) 64.0 Lymph % (Auto) 26.0 [place] % (Auto) 8.0 Eos % (Auto) 0.6 Baso % (Auto) 0.5 Neut # (Auto) 7.46 H Lymph # (Auto) 3.03 [place] # (Auto) 0.93 H Eos # (Auto) 0.07 Baso # (Auto) 0.06 Immature Gran # (Auto) 0.11 PT 10.3 INR 0.9 APTT 26 PTT Ratio 1.0 Sodium 141 Potassium 3.9 Chloride 105 Carbon Dioxide 28 Anion Gap 8 BUN 18 Creatinine 0.87 Est Cr Clr Drug Dosing 63.7 eGFR 71.19 BUN/Creatinine Ratio 20.7 H Glucose 89 Calcium 9.2 Magnesium 1.9 Total Bilirubin 0.8 AST 37 ALT 23 Alkaline Phosphatase 49 Troponin I High Sens 11.6 11.5 Total Protein 6.5 Albumin 4.0 Globulin 2.5 Albumin/Globulin Ratio 1.6 Lipase 13 Procalcitonin < 0.02
[2025-02-15] MEDS: POTASSIUM CHLORIDE CRTAB 20 MEQ TABCR PO ONE (18:39)
[2025-02-15] MEDS: METOPROLOL TARTRATE 25 MG TAB PO SCH ×2 (18:40→18:41)
[2025-02-15 18:55] LABS: Appearance Urine Clear (Clear); Glucose Urine UA Negative (Negative)
[2025-02-15] MEDS: OPTIRAY 320 125ml IV ONE (21:45)
[2025-02-16 00:02] LABS: ANTI-Xa, UFH(UnfractionatedHep 0.69 IU/ml (0.3-0.7)
--- NOTE | 2025-02-16 01:22 | CT Scan Report ---
Exam(s): CTA CHEST IV Amt: 115 ml optiray 320 EXAM: CT Angiography Chest With Intravenous Contrast CLINICAL HISTORY: Reason for exam: PE. TECHNIQUE: Axial computed tomographic angiography images of the chest with intravenous contrast. CTDI is 19.28 mGy and DLP is 593.62 mGy-cm. Automated exposure control was utilized for the study. A dose lowering technique was utilized adhering to the principles of ALARA. MIP reconstructed images were created and reviewed. COMPARISON: No relevant prior studies available. FINDINGS: Pulmonary arteries: No pulmonary embolism is seen. Aorta: No thoracic aortic aneurysm. Lungs: There is some dependent atelectasis.. Pleural space: No significant effusion. No pneumothorax. Heart: The heart is enlarged.. Bones/joints: There are degenerative changes in the spine.. Soft tissues: Unremarkable. Lymph nodes: No enlarged lymph nodes. IMPRESSION: No pulmonary embolism is seen. Electronically signed by: Francisco Klein MD 02/16/25 01:21 AM
[2025-02-16] MEDS: CHOLECALCIFEROL 25 MCG (1000 UNITS) TAB PO SCH (08:28)
[2025-02-16] MEDS: LORATADINE 10 MG TAB PO SCH (08:28)
[2025-02-16] MEDS: ROSUVASTATIN CALCIUM 10 MG TAB PO SCH (08:29)
[2025-02-16 08:51] LABS: Hematocrit (blood only) 44.3 % (37.0-47.0); Hemoglobin 14.2 g/dl (12.0-16.0); Immature Granulocytes # (auto) 0.08 K/uL (0.01-0.20); Immature Granulocytes % (auto) 1.0 %; Mean Corpuscular Hemoglobin 28.6 pg (25.0-34.0); Mean Corpuscular Volume 89.1 fL (80.0-100.0); Platelet Count 239 K/uL (130-400); RDW Standard Deviation 45.3 fL (36.4-46.3); Red Blood Count 4.97 M/uL (4.20-5.40); White Blood Count 8.04 K/ul (4.8-10.8)
[2025-02-16 09:06] LABS: Anion Gap 6.0 (3-11); Blood Urea Nitrogen 18.0 mg/dl (6-23); Calcium 8.3 mg/dl (8.6-10.3); Carbon Dioxide 28.0 mmol/L (21-32); Chloride 106.0 mmol/L (98-107); Creatinine Clr Calc Pharmacy 66.0 ml/min; Glucose 96.0 mg/dl (70-99(Fasting)); Potassium 4.0 mmol/L (3.5-5.1); Sodium 140.0 mmol/L (136-145)
[2025-02-16 09:09] LABS: Magnesium 2.1 mg/dl (1.7-2.4)
[2025-02-16 09:25] LABS: ANTI-Xa, UFH(UnfractionatedHep 1.04 IU/ml (0.3-0.7)
--- NOTE | 2025-02-16 10:32 | Cardiology Progress Note ---
Date of Service February 16, 2025 Assessment & Plan (1) Atrial fibrillation with RVR: (2) Precordial chest pain: (3) Hypercholesterolemia: Plan 70-year-old female presented acutely with symptoms of chest pressure and pain and heart pounding beginning evening prior. Usually very active but limited recently by knee injury. Initial cardiac enzymes negative for injury or infarct. EKG and telemetry on presentation atrial fibrillation with rapid response. Heart rate slowed slightl y with single dose of IV metoprolol. Impression: 1. Atrial fibrillation with rapid ventricular response: First event per patient will begin metoprolol tartrate 25 mg p.o. every 6 hours. [id number] score of 2. Begin IV heparin for anticoagulation. Reassess heart rates as clinical course progresses regarding potential cardioversion given recent and acute onset 2. Acute chest pain. Recent car travel and right knee injury. D-dimer ordered if positive would CT chest for PE. EKG in a.m. N.p.o. after midnight 02/16/2025 Clinically improved after spontaneous conversion to sinus rhythm no further chest pain no cardiac symptoms. No evidence of myocardial ischemia by cardiac enzyme or EKG. Recommendations as below but will continue anticoagulation at least 30 days but likely ongoing giving risk for recurrence of atrial fibrillation. Patient agreeable 1. Paroxysmal atrial fibrillation with rapid ventricular response: Spontaneous conversion with beta-geo last evening Recommendations: Stable for discharge today Metoprolol succinate 25 mg p.o. daily Eliquis 5 mg p.o. twice daily Follow-up cardiology 3 weeks Patient to track heart rate and rhythm with home monitor device Admission and Anticipated Discharge Date Admission Date: February 15, 2025 Subjective Patient seen and examined, chart, medications, telemetry reviewed. Feels well this morning ambulatory in room. No further chest pain or discomfort. Spontaneously converted to sinus rhythm overnight EKG this morning normal sinus rhythm with normal tracing at 63 bpm Review of Systems Review of Systems: All systems reviewed & are unremarkable except as noted in Subjective Physical Exam Constitutional: WD/WN, vitals as above no acute distress Eyes: PERRL, conjunctivae normal, anicteric sclerae ENMT: external ear and nose normal, oropharynx normal Neck: trachea midline, no thyromegaly Respiratory: normal respiratory effort, lungs clear to auscultation Cardiovascular: Rate/Rhythm: regular rate and regular rhythm Heart Sounds: no gallop, no murmur and no cardiac rub Vessels: no JVD Extremities: no edema Gastrointestinal (Abdomen): normal bowel sounds, soft, nontender, no hepatosplenomegaly Results & Data Vital Signs (Past 12 Hours) Vital Signs Temp Pulse Pulse Resp BP Pulse Ox O2 Del Method 02/16/25 08:15 68 02/16/25 07:23 37.0 C 66 18 115/65 97 Room Air 02/16/25 05:35 67 127/79 02/16/25 03:35 36.6 C 63 16 115/76 98 Room Air Laboratory Results Laboratory Results - last 24 hr 02/15/25 02/15/25 02/15/25 11:57 15:21 16:43 WBC 11.66 H RBC 5.45 H Hgb 15.7 Hct 47.9 H MCV 87.9 MCH 28.8 MCHC 32.8 RDW Std Deviation 44.4 RDW Coeff of Marquez 14.0 Plt Count 297 MPV 10.0 Immature Gran % (Auto) 0.9 Neut % (Auto) 64.0 Lymph % (Auto) 26.0 [place] % (Auto) 8.0 Eos % (Auto) 0.6 Baso % (Auto) 0.5 Neut # (Auto) 7.46 H Lymph # (Auto) 3.03 [place] # (Auto) 0.93 H Eos # (Auto) 0.07 Baso # (Auto) 0.06 Immature Gran # (Auto) 0.11 PT 10.3 INR 0.9 APTT 26 PTT Ratio 1.0 D-Dimer 600 H* Heparin Anti-Xa, Unfract Sodium 141 Potassium 3.9 Chloride 105 Carbon Dioxide 28 Anion Gap 8 BUN 18 Creatinine 0.87 Est Cr Clr Drug Dosing 63.7 eGFR 71.19 BUN/Creatinine Ratio 20.7 H Glucose 89 Calcium 9.2 Phosphorus Magnesium 1.9 Total Bilirubin 0.8 AST 37 ALT 23 Alkaline Phosphatase 49 Troponin I High Sens 11.6 11.5 Total Protein 6.5 Albumin 4.0 Globulin 2.5 Albumin/Globulin Ratio 1.6 Lipase 13 Procalcitonin < 0.02 TSH 1.231 Urine Color Urine Appearance Urine pH Ur Specific [place] Urine Protein Urine Glucose (UA) Urine Ketones Urine Blood Urine Nitrite Urine Bilirubin Urine Urobilinogen Ur Leukocyte Esterase Urine Comment 02/15/25 02/15/25 02/15/25 18:42 20:14 23:02 WBC RBC Hgb Hct MCV MCH MCHC RDW Std Deviation RDW Coeff of Marquez Plt Count MPV Immature Gran % (Auto) Neut % (Auto) Lymph % (Auto) [place] % (Auto) Eos % (Auto) Baso % (Auto) Neut # (Auto) Lymph # (Auto) [place] # (Auto) Eos # (Auto) Baso # (Auto) Immature Gran # (Auto) PT INR APTT PTT Ratio D-Dimer Heparin Anti-Xa, Unfract 0.69 Sodium Potassium Chloride Carbon Dioxide Anion Gap BUN Creatinine Est Cr Clr Drug Dosing eGFR BUN/Creatinine Ratio Glucose Calcium Phosphorus Magnesium Total Bilirubin AST ALT Alkaline Phosphatase Troponin I High Sens 9.8 Total Protein Albumin Globulin Albumin/Globulin Ratio Lipase Procalcitonin TSH Urine Color Yellow Urine Appearance Clear Urine pH 7.0 Ur Specific [place] 1.006 Urine Protein Negative Urine Glucose (UA) Negative Urine Ketones Negative Urine Blood Negative Urine Nitrite Negative Urine Bilirubin Negative Urine Urobilinogen Negative Ur Leukocyte Esterase Negative Urine Comment 02/15/25 02/16/25 23:06 08:05 WBC 8.04 RBC 4.97 Hgb 14.2 Hct 44.3 MCV 89.1 MCH 28.6 MCHC 32.1 RDW Std Deviation 45.3 RDW Coeff of Marquez 14.1 Plt Count 239 MPV 10.0 Immature Gran % (Auto) 1.0 Neut % (Auto) 49.0 Lymph % (Auto) 38.7 [place] % (Auto) 8.5 Eos % (Auto) 2.1 Baso % (Auto) 0.7 Neut # (Auto) 3.94 Lymph # (Auto) 3.11 [place] # (Auto) 0.68 H Eos # (Auto) 0.17 Baso # (Auto) 0.06 Immature Gran # (Auto) 0.08 PT INR APTT PTT Ratio D-Dimer Heparin Anti-Xa, Unfract 1.04 H* Sodium 140 Potassium 4.0 Chloride 106 Carbon Dioxide 28 Anion Gap 6 BUN 18 Creatinine 0.84 Est Cr Clr Drug Dosing 66.0 eGFR 74.25 BUN/Creatinine Ratio 21.4 H Glucose 96 Calcium 8.3 L Phosphorus 3.1 Magnesium 2.1 Total Bilirubin AST ALT Alkaline Phosphatase Troponin I High Sens 9.8 Total Protein Albumin Globulin Albumin/Globulin Ratio Lipase Procalcitonin TSH Urine Color Urine Appearance Urine pH Ur Specific [place] Urine Protein Urine Glucose (UA) Urine Ketones Urine Blood Urine Nitrite Urine Bilirubin Urine Urobilinogen Ur Leukocyte Esterase Urine Comment PG Care Time/CCT Total # of Minutes Spent Total Time Spent with Patient: Total time spent is greater than 50% in coordination of care (as documented) at patient's floor/unit and/or counseling patient: Coding Level of Care Code 66382 SUB INP/OBS CARE 3/50MIN Diagnoses Atrial fibrillation with RVR I48.91 Precordial chest pain R07.2 Hypercholesterolemia E78.00
[2025-02-16] MEDS: APIXABAN 5 MG TABLET PO SCH (10:54)
--- NOTE | 2025-02-16 11:26 | Hospitalist Progress Note ---
Date of Service February 16, 2025 Assessment & Plan (1) Atrial fibrillation with RVR: (2) Leukocytosis: Plan Patient is a 70-year-old female with past medical history significant for HLD, GERD, asthma, age-related osteoporosis and other problems listed below who presented to the ED with complaints including chest pain plus hypertension and was found to be in new-onset afib w/ RVR. New-onset paroxysmal Afib w/ RVR CXR: mild cardiomegaly but otherwise unremarkable [id number] score = 2 --ECHO: Mild concentric LVH. Basal septum is thickened and angulated consistent with sigmoid septum. Left ventricular wall motion normal. EF 55 to 60%. Left atrium is moderately dilated. Mitral valve annulus is moderately enlarged with mild systolic bowing of both leaflets. No true prolapse. There is moderate mitral regurgitation. --Normal TSH --Spontaneously converted to sinus Continue metoprolol succinate 25 mg daily IV heparin transition to Eliquis for anticoagulation Appreciate cardiology input Needs follow-up with cardiology on discharge Leukocytosis Likely reactive 2/2 pain No obvious signs of infection WBC count normalized Age-related osteoporosis on Fosamax Continue vit D supplementation GERD Continue PPI HLD Continue statin DVT Px: Eliquis PCP: Teodora Hooker DO Disposition: Home Admission and Anticipated Discharge Date Admission Date: February 15, 2025 Subjective Patient is seen and examined at bedside Palpitations, chest pain resolved Spontaneously converted to sinus Denies any dyspnea, dizziness, abdominal pain No other complaints Plan to be discharged home today Review of Systems Review of Systems: All systems reviewed & are unremarkable except as noted in Subjective Physical Exam Physical Exam: Physical Exam: Vitals signs as noted above General Appearance:Moderately built and nourished, no apparent distress Head: normocephalic, Atraumatic Eyes: normal inspection, EOMI Neck: supple, Trachea midline Respiratory/Chest: Normal breath sounds, CTA, No accessory muscle use Cardiovascular: S1, S2, No murmur Abdomen/GI:Soft, Non tender, Bowel sounds present Extremities/Musculoskeletal:normal inspection, no edema Neurologic/Psych:AAOX3, grossly no focal neurological deficits Skin: normal color, warm Results & Data Results & Data Vital Signs (Past 12 Hours) Vital Signs Temp Pulse Pulse Resp BP Pulse Ox O2 Del Method 02/16/25 08:15 68 02/16/25 07:23 37.0 C 66 18 115/65 97 Room Air 02/16/25 05:35 67 127/79 02/16/25 03:35 36.6 C 63 16 115/76 98 Room Air Laboratory Results Short CBC 02/15/25 02/16/25 Range/Units 11:57 08:05 WBC 11.66 H 8.04 (4.8-10.8) K/ul Hgb 15.7 14.2 (12.0-16.0) g/dl Hct 47.9 H 44.3 (37.0-47.0) % Plt Count 297 239 (130-400) K/uL BMP 02/15/25 02/16/25 11:57 08:05 Sodium 141 140 Potassium 3.9 4.0 Chloride 105 106 Carbon Dioxide 28 28 BUN 18 18 Creatinine 0.87 0.84 Glucose 89 96 Calcium 9.2 8.3 L Liver Function 02/15/25 Range/Units 11:57 Total Bilirubin 0.8 (0.2-1.0) mg/dl AST 37 (13-39) U/L ALT 23 (7-52) U/L Alkaline Phosphatase 49 (34-104) U/L Albumin 4.0 (3.4-5.0) gm/dl Urine 02/15/25 Range/Units 18:42 Urine Color Yellow Urine Appearance Clear (Clear) Urine pH 7.0 (4.5-7.5) Ur Specific [place] 1.006 (1.000-1.030) Urine Protein Negative (Negative) Urine Glucose (UA) Negative (Negative) (2) Leukocytosis Leukocytosis type: unspecified Qualified Code(s): D72.829 - Elevated white blood cell count, unspecified
--- NOTE | 2025-02-16 11:45 | Discharge Summary ---
Date of Service February 16, 2025 Admission HPI Per Admitting Provider Patient is a 70-year-old female with past medical history significant for HLD, GERD, asthma, age-related osteoporosis and other problems listed below who presented to the ED with complaints of chest pain and hypertension. History obtained from the patient, discussion with the ED provider and associated chart review. Patient reports onset of crushing substernal chest pain and palpitations last evening around 8PM after riding her exercise bike. Upon resting, her HR was elevated in the 110s-120s and the substernal chest pain did not reside. She describes feeling diaphoretic, nauseated and somewhat short of breath as well when the substernal chest pain arose. Eventually these symptoms slowly improved and she was able to fall asleep; however, she mentions experiencing bouts of chest pressure throughout the night which made it difficult for her to lie flat in bed. Upon waking this morning, her symptoms slowly returned including substernal chest pain, chest pressure and nausea. She also describes feeling a "burning sensation" in her mid upper chest which she thought was related to her underlying GERD; however, she took 2 TUMS this morning without any improvement in her symptoms which subsequently prompted her to come to the ED for evaluation. Upon arrival to the ED, patient was found to be in afib with RVR on telemetry with HR in the 130s. No history of afib per patient. Does have a brother with afib. No prior blood thinner use. No history of HTN. Endorses strong family history of cardiac disease including her mother whom in her 40s due to an acute NM. No smoking history. Rare alcohol use. No recreational drug use. Stress TTE, 07/2020: negative for inducible ischemia, LVEF 55 to 59%, grade 1 DD and mild MR. Admission Exam Per Admitting Provider General: WD/WN, NAD, sitting up in bed, pleasant, conversing appropriately, A+Ox3, at bedside HEENT: Normocephalic, atraumatic, external ear and nose normal, oropharynx normal Respiratory: Normal respiratory effort, lungs clear to auscultation bilaterally, no accessory muscle use Cardiovascular: Tachycardic rate, irregularly irregular rhythm, normal peripher al pulses, no BLE edema Abdomen/GI: Normal bowel sounds, soft, nontender to palpation in all quadrants Extremities/MSKl: No cyanosis or clubbing, extremities motor strength intact, moves all extremities Neurologic: No overt focal deficits, CN's II-XI not formally tested but appear grossly intact bilaterally Principal Diagnosis Paroxysmal atrial fibrillation with rapid ventricular response Mitral regurgitation Discharge Data Allergies Allergy/AdvReac Type Severity Reaction Status Date / Time Penicillins Allergy Mild . Verified 05/07/24 13:28 Consultations 02/15/25 13:30 ED Decision to Admit Stat 02/15/25 13:37 Consult Cardiology Routine Procedures Performed Laboratory Results WBC 8.04 K/ul (4.8-10.8) 02/16/25 08:05 RBC 4.97 M/uL (4.20-5.40) 02/16/25 08:05 Hgb 14.2 g/dl (12.0-16.0) 02/16/25 08:05 Hct 44.3 % (37.0-47.0) 02/16/25 08:05 MCV 89.1 fL (80.0-100.0) 02/16/25 08:05 MCH 28.6 pg (25.0-34.0) 02/16/25 08:05 MCHC 32.1 g/dL (32.0-36.0) 02/16/25 08:05 RDW Std Deviation 45.3 fL (36.4-46.3) 02/16/25 08:05 RDW Coeff of [place]quez 14.1 % (11.5-14.5) 02/16/25 08:05 Plt Count 239 K/uL (130-400) 02/16/25 08:05 MPV 10.0 fL (9.4-12.4) 02/16/25 08:05 Immature Gran % (Auto) 1.0 % 02/16/25 08:05 Neut % (Auto) 49.0 % 02/16/25 08:05 Lymph % (Auto) 38.7 % 02/16/25 08:05 [place] % (Auto) 8.5 % 02/16/25 08:05 Eos % (Auto) 2.1 % 02/16/25 08:05 Baso % (Auto) 0.7 % 02/16/25 08:05 Neut # (Auto) 3.94 K/uL (1.40-6.50) 02/16/25 08:05 Lymph # (Auto) 3.11 K/uL (1.20-3.40) 02/16/25 08:05 [place] # (Auto) 0.68 K/uL (0.11-0.59) H 02/16/25 08:05 Eos # (Auto) 0.17 K/uL (0.00-0.50) 02/16/25 08:05 Baso # (Auto) 0.06 K/uL (0.00-0.20) 02/16/25 08:05 Immature Gran # (Auto) 0.08 K/uL (0.01-0.20) 02/16/25 08:05 PT 10.3 Seconds (9.0-12.0) 02/15/25 11:57 INR 0.9 (0.9-1.1) 02/15/25 11:57 APTT 26 Seconds (21-31) 02/15/25 11:57 PTT Ratio 1.0 02/15/25 11:57 D-Dimer 600 ug/L FEU (0-500) H* 02/15/25 16:43 Heparin Anti-Xa, Unfract 1.04 IU/ml (0.3-0.7) H* 02/16/25 08:05 Sodium 140 mmol/L (136-145) 02/16/25 08:05 Potassium 4.0 mmol/L (3.5-5.1) 02/16/25 08:05 Chloride 106 mmol/L (98-107) 02/16/25 08:05 Carbon Dioxide 28 mmol/L (21-32) 02/16/25 08:05 Anion Gap 6 (3-11) 02/16/25 08:05 BUN 18 mg/dl (6-23) 02/16/25 08:05 Creatinine 0.84 mg/dl (0.6-1.2) 02/16/25 08:05 Est Cr Clr Drug Dosing 66.0 ml/min 02/16/25 08:05 eGFR 74.25 02/16/25 08:05 BUN/Creatinine Ratio 21.4 (10-20) H 02/16/25 08:05 Glucose 96 mg/dl (70-99(Fasting)) 02/16/25 08:05 Calcium 8.3 mg/dl (8.6-10.3) L 02/16/25 08:05 Phosphorus 3.1 mg/dl (2.5-4.9) 02/16/25 08:05 Magnesium 2.1 mg/dl (1.7-2.4) 02/16/25 08:05 Total Bilirubin 0.8 mg/dl (0.2-1.0) 02/15/25 11:57 AST 37 U/L (13-39) 02/15/25 11:57 ALT 23 U/L (7-52) 02/15/25 11:57 Alkaline Phosphatase 49 U/L (34-104) 02/15/25 11:57 Troponin I High Sens 9.8 pg/ml (0-14) 02/15/25 23:06 Total Protein 6.5 gm/dl (6.0-8.3) 02/15/25 11:57 Albumin 4.0 gm/dl (3.4-5.0) 02/15/25 11:57 Globulin 2.5 gm/dl (2.5-4.0) 02/15/25 11:57 Albumin/Globulin Ratio 1.6 (0.9-2) 02/15/25 11:57 Lipase 13 U/L (11-82) 02/15/25 11:57 Procalcitonin < 0.02 ng/ml (0-0.5) 02/15/25 11:57 TSH 1.231 uIu/ml (0.300-4.500) 02/15/25 16:43 Urine Color Yellow 02/15/25 18:42 Urine Appearance Clear (Clear) 02/15/25 18:42 Urine pH 7.0 (4.5-7.5) 02/15/25 18:42 Ur Specific [place] 1.006 (1.000-1.030) 02/15/25 18:42 Urine Protein Negative (Negative) 02/15/25 18:42 Urine Glucose (UA) Negative (Negative) 02/15/25 18:42 Urine Ketones Negative (Negative) 02/15/25 18:42 Urine Blood Negative (Negative) 02/15/25 18:42 Urine Nitrite Negative (Negative) 02/15/25 18:42 Urine Bilirubin Negative (Negative) 02/15/25 18:42 Urine Urobilinogen Negative (Negative) 02/15/25 18:42 Ur Leukocyte Esterase Negative (Negative) 02/15/25 18:42 Urine Comment 02/15/25 18:42 Impressions Chest X-Ray 02/15/25 12:27 XR chest 1V portable CLINICAL HISTORY: Chest pain, nonspecific COMPARISON STUDY: None FINDINGS: There is mild cardiomegaly without pulmonary vascular congestion. No consolidation or pleural effusion. No pneumothorax. IMPRESSION: No acute findings. ACT 112: Negative or not required by law. Electronically signed by: Garth Phillips M.D. 02/15/2025 12:53 PM Chest CTA 02/15/25 17:41 Exam(s): CTA CHEST IV Amt: 115 ml optiray 320 EXAM: CT Angiography Chest With Intravenous Contrast CLINICAL HISTORY: Reason for exam: PE. TECHNIQUE: Axial computed tomographic angiography images of the chest with intravenous contrast. CTDI is 19.28 mGy and DLP is 593.62 mGy-cm. Automated exposure control was utilized for the study. A dose lowering technique was utilized adhering to the principles of ALARA. MIP reconstructed images were created and reviewed. COMPARISON: No relevant prior studies available. FINDINGS: Pulmonary arteries: No pulmonary embolism is seen. Aorta: No thoracic aortic aneurysm. Lungs: There is some dependent atelectasis.. Pleural space: No significant effusion. No pneumothorax. Heart: The heart is enlarged.. Bones/joints: There are degenerative changes in the spine.. Soft tissues: Unremarkable. Lymph nodes: No enlarged lymph nodes. IMPRESSION: No pulmonary embolism is seen. Electronically signed by: Francisco Klein MD 02/16/25 01:21 AM Ordered Studies 02/15/25 17:41 CT angio chest PE protocol Urgent Hospital Course (1) Atrial fibrillation with RVR: (2) Leukocytosis: Plan Patient is a 70-year-old female with past medical history significant for HLD, GERD, asthma, age-related osteoporosis and other problems listed below who presented to the ED with complaints including chest pain plus hypertension and was found to be in new-onset afib w/ RVR. New-onset paroxysmal Afib w/ RVR CXR: mild cardiomegaly but otherwise unremarkable [id number] score = 2 --ECHO: Mild concentric LVH. Basal septum is thickened and angulated consistent with sigmoid septum. Left ventricular wall motion normal. EF 55 to 60%. Left atrium is moderately dilated. Mitral valve annulus is moderately enlarged with mild systolic bowing of both leaflets. No true prolapse. There is moderate mitral regurgitation. --Normal TSH --Spontaneously converted to sinus Continue metoprolol succinate 25 mg daily IV heparin transition to Eliquis for anticoagulation Appreciate cardiology input Needs follow-up with cardiology on discharge Leukocytosis Likely reactive 2/2 pain No obvious signs of infection WBC count normalized Age-related osteoporosis on Fosamax Continue vit D supplementation GERD Continue PPI HLD Continue statin DVT Px: Eliquis PCP: Teodora Hooker DO Disposition: Home Total Time Total Time Spent Total Time Spent (In Minutes): 48 minutes Discharge Plan Discharge Items Patient Disposition: Home - Self-Care Reason For Visit: NEW ONSET AFIB W RVR Discharge Diagnosis: Paroxysmal atrial fibrillation with rapid ventricular response Mitral regurgitation Activity: Per Instructions section Exercise/Sports: Gradually increase as tolerated Non-emergency contact: Primary Care Provider and Die Grinder Call non-emergency contact if: you have any medication questions, your symptoms worsen, your pain is concerning for you and you have a fever Follow-up/Referrals: Teodora Hooker DO [Primary Care Provider] - (The office will call you with a follow up appointment.) Diet: Heart Healthy Addtl Attending Provider Instructions: -- Follow-up with your primary care physician in 1 week -- Follow-up with your forming machine operator Dr. Guzman in 3 weeks as recommended -- Start taking metoprolol succinate 25 mg daily and Eliquis( apixaban) 5 mg twice a day as recommended by your forming machine operator --Keep yourself hydrated as recommended Seek immediate medical attention if your symptoms reoccur or worsen Please review medication list provided on discharge for any medication changes as instructed. Please call if you have any questions or problems. You can reach a [facility] hospitalist on duty at [facility] 24 hours a day by calling [phone] Pending Studies at Discharge: No Stand-Alone Forms: My [facility] [employer], Smoking Cessation Medications and DC Order Prescriptions: New metoprolol succinate 25 mg Tablet Extended Release 24 Hr 25 mg PO QAM Qty: 30 1RF Eliquis 5 mg Tablet 5 mg PO BID Qty: 60 1RF Continued albuterol sulfate [ProAir HFA] 90 mcg/actuation HFA aerosol inhaler 2 puff inhalation Q4H PRN (Reason: SOB or Wheezing) omeprazole 20 mg capsule,delayed release(DR/EC) 20 mg PO QAM alendronate 10 mg PO QAM Rx Instructions: TAKE 1 TABLET BY MOUTH IN THE MORNING WITH 8 OZ OF WATER AT LEAST 30 MINUTES BEFORE FIRST MEAL OF THE DAY. DO NOT LIE DOWN FOR 30 MINUTES AFTER TAKING TABLET. rosuvastatin [Crestor] 10 mg PO QAM loratadine 10 mg Tablet 10 mg PO QAM cholecalciferol (vitamin D3) [Vitamin D3] 50 mcg (2,000 unit) Tablet 50 mcg PO QAM turmeric 400 mg Capsule 400 mg PO QAM Discharge Orders: Discharge Order (Routine); Ordered 02/16/25 Ordered By: Jorge Archer Admission Data Admit Date/Time: 02/15/25 13:33 Attending Provider: Jorge Archer Admit Provider: Krys Monahan Primary Care Provider: Teodora Hooker Other Providers: Christian Guzman; Krys Monahan
[2025-02-16 12:42] VITALS: BP 116/74; PULSE 64; RESP 17; TEMP 97.5; O2SAT 94
--- NOTE | 2025-02-16 14:42 | Electrocardiogram Report ---
Test Reason : Blood Pressure : */* mmHG Vent. Rate : 132 BPM Atrial Rate : * BPM P-R Int : * ms QRS Dur : 80 ms QT Int : 292 ms P-R-T Axes : * 29 88 degrees QTcB Int : 432 ms Atrial fibrillation with rapid ventricular response Septal infarct , age undetermined Abnormal ECG No previous ECGs available Confirmed by Flakito Horne ([id number]) on 02/16/2025 2:42:23 PM Referred By: REFERRED SELF Confirmed By: Flakito Horne
--- NOTE | 2025-02-16 15:08 | Electrocardiogram Report ---
Test Reason : Blood Pressure : */* mmHG Vent. Rate : 63 BPM Atrial Rate : 63 BPM P-R Int : 154 ms QRS Dur : 84 ms QT Int : 436 ms P-R-T Axes : 55 38 62 degrees QTcB Int : 446 ms Normal sinus rhythm Normal ECG When compared with ECG of 15-Feb-2025 11:50, (unconfirmed) Sinus rhythm has replaced Atrial fibrillation Vent. rate has decreased by 69 bpm Criteria for Septal infarct are no longer Present ST no longer depressed in Lateral leads Confirmed by Flakito Horne ([id number]) on 02/16/2025 3:08:15 PM Referred By: REFERRED SELF Confirmed By: Flakito Horne
[2025-02-17] MEDS ORDERED: METOPROLOL SUCC 25MG EXT REL TAB PO SCH (09:00)
== END 2025-02-16 13:00 | disposition home or self-care (01) | DRG 310 ==
LOC: ED 11:37 → 2N 13:33 → SUATTDRO 13:33 → 2N 14:49